=== PATIENT | male | born 1945 | race Caucasian/White ===

== ENCOUNTER 2016-09-30 10:13 | Observation (INO) | payer MEDICARE, OTHER ==
[~2016-09-30] VITALS: Ht 177.8 cm; Wt 87.8 kg
[2016-09-30] VITALS (8 sets, daily range): BP systolic 119–167; BP diastolic 67–95; PULSE 64–74; RESP 12–16; O2SAT 96–100
--- NOTE | 2016-09-30 10:47 | DRSVH ---
PROCEDURE: CT BRAIN (TPA) ([id number]) INDICATIONS: Stroke TECHNIQUE: Noncontrast 4.5 mm thick angled axial sections acquired from the foramen magnum to the vertex, with c oronal reformats. COMPARISON: None. FINDINGS: Image quality: Excellent. CSF spaces: Basal cisterns are patent. No extra-axial fluid collections. The ventricles are symmet lyndsay in size and shape. Brain: No intracranial bleeds or masses. There is cerebral volume loss for age, with resultant vent ricular and sulcal prominence. There are periventricular and deep white matter chronic small vessel ischemic changes. There is intracranial internal carotid artery atherosclerosis. Skull and face: Calvarium and visualized facial bones appear intact, without suspicious lesions. Sinuses: Visualized sinuses and mastoids are clear. IMPRESSION: 1. No acute intracranial process. 2. Moderate atrophy and chronic microvascular ischemic changes. The findings were discussed with Dr. Klever Cao on 09/30/16 at 10:41 AM. This study fulfills neurological imaging criteria for inclusion or exclusion of acute stroke therapie s based on available published neurological guidelines. Dictated by: Susan Nance M.D. on 09/30/2016 at 10:42 Approved by: Susan Nance M.D. on 09/30/2016 at 10:45
--- NOTE | 2016-09-30 10:50 | ED.REPORT ---
HPI-Stroke / CVA Sep 30, 2016 ED Provider: Dr. Heath Pt is a 70 y/o male anticoagulated on Warfarin w/ a hx of hx of septic embolic CVA, prev endocarditis, HTN, HLD, CAD and septic embolic SC, aortic aneurysm, presenting to the ED with family c/o now resolved RUE weakness onset 08:30 today. He describes his RUE weakness as a heaviness which lasted until he arrived to the ED and is now resolved by time of interview. He c/o associated lightheadedness, bilateral lower extremity weakness. All of his symptoms are resolved at time of interview. The family members were with him during the event and noticed that his arm use wasn't normal. He has had a stroke previously with symptoms of aphasia which was thought to be caused by endocarditis. Pt denies speech changes, vision changes, headache, CP, SOB, nausea, vomiting, diarrhea, bloody stools, dizziness. The patient is scheduled for defibrillator placement in the recent future. Wallpaper Printer Helper: Myke Echocardiogram 02/15/16 interpreted as below: Interpretation Summary Left ventricular systolic function is moderate to severely reduced with the ejection fraction estimated to be 30-35% with moderate global hypokinesis and more severe hypokinesis in the inferior and inferioposterior segments but this is unchanged compared to the previous study. The left ventricle is normal in size with mild-moderate concentric left ventricular hypertrophy that is also unchanged compared to the previous study. Assessment of diastolic parameters suggests a pseudonormalization pattern, consistent with elevated filling pressures and the E/E' ratio is moderately increased, also suggesting possible increased filling pressures but there has been no significant change since the previous study. The right ventricle is mildly dilated and right ventricular systolic function is moderately reduced but appears unchanged compared to the previous study. There is moderate pulmonary hypertension with the right ventricular systolic pressure estimated at 54 mmHg assuming a right atrial pressure of 8 mm Hg, and is likelyminimally improved compared to the previous study. There is severe biatrial enlargement but both have mildly decreased in size since the prior echo exam. There is moderate mitral regurgitation that is slightly more prominent compared to the previous study. There is moderate tricuspid regurgitation that is unchanged compared to the previous study. There is a mechanical prosthetic aortic valve that appears to be well-seated with gradients that are within the normal range for this type of valve. There is no obvious aortic valvular vegetation. There has been no significant change since the previous study . The ascending aorta is moderately enlarged but measures smaller compared to the previous study. The aortic arch is mildly enlarged and is unchanged compared to the previous study. Nursing Notes Stated Complaint: HEART PROBLEMS Chief Complaint: Neuro Symptoms/ Deficits Nursing Notes Reviewed: Yes Allergies: Coded Allergies: No Known Drug Allergies (Verified Allergy, Unknown, 09/30/16) Scheduled Aspirin (Aspirin) 81 Mg Tablet 81 MG PO DAILY (Reported) Atorvastatin Calcium (Atorvastatin Calcium) 20 Mg Tablet 20 MG PO HS (Reported) Carvedilol (Carvedilol) 6.25 Mg Tablet 6.25 MG PO BID (Reported) Felodipine ER (Felodipine ER) 10 Mg Tab.er.24h 10 MG PO DAILY (Reported) Furosemide (Furosemide) 20 Mg Tab 20 MG PO DAILY (Reported) Losartan Potassium (Losartan Potassium) 50 Mg Tablet 75 MG PO BID (Reported) Spironolactone (Spironolactone) 25 Mg Tablet 12.5 MG PO DAILY (Reported) Warfarin Sodium (Jantoven) 5 Mg Tablet 2.5 MG PO T,W,TH,S,S (Reported) Warfarin Sodium (Jantoven) 5 Mg Tablet 5 MG PO M, F (Reported) General Time Seen by Provider: 10:55 Chief Complaint Weakness Arm right Hx Obtained From: Patient Arrived By: Walk-in Time last known well 08:30 Sudden in Onset?: Yes Symptom Duration: 1 - 4 hours Progression Since Onset: Resolved Severity: Current: No pain currently Severity: Maximum: No pain Similar Sx Previous: No Risk Factors )( TPA Administration/Criteria Stroke Thrombolytic Therapy : TPA Considered: Yes TPA Administered Intravenously: No, not indicated NIH Stroke Scale Level of Consciousness: Alert and responsive (0) Ask Month & Age: Both questions right (0) Open/Close Eyes/Hand Donkey Engine Firer/Fireman: Performs both tasks (0) Horizontal EO Movements: None (0) Visual Burch: No visual loss (0) Facial Palsy: Normal symmetry (0) Right Arm Motor Drift (10s): No drift 10 sec (0) Left Arm Motor Drift (10s): No drift 10 sec (0) Right Leg Motor Drift (5s): No drift 5 sec (0) Left Leg Motor Drift (5s): No drift 5 sec (0) Limb Ataxia FNF/Heel-Emery: No ataxia (0) Sensation (Arms/Legs/Face): No sensory loss (0) Language Aphasia: No aphasia, normal (0) Dysarthria: No dysarthria, normal (0) Extinction/Inattention: No exctinct/inattent (0) NIHSS Score: 0 Time NIHSS Performed: 11:09 Date NIHSS Performed: Sep 30, 2016 Past Medical History Past Medical History 1. Hx endocarditis 2. 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 Hypertension. 4. Dyslipidemia. 5. Bicuspid aortic valve status post aortic valve replacement in 1955, redo in 1977 with a Riana/Shiley aortic valve. 6. Embolic myocardial infarction with known significant coronary artery disease, right bundle branch block, bifascicular. 7. Mild sleep apnea. 8. Ascending aortic aneurysm. CT scan May 11 showed 4.7 cm. Past Surgical History Aortic valve replacement Smoking History Unknown if Ever Smoker Social History Other Social History: Good social support Ambulatory Status Independent Review of Systems Constitutional: Denies: Chills, Fever Respiratory: Denies: Non-productive cough, Shortness of breath Cardiovascular: Denies: Chest pain, Dyspnea on exertion GI: Denies: Abdominal pain, Bloody/tarry stool, Diarrhea, Nausea, Vomiting Musculoskeletal: Denies: Back pain, Extremity pain Neurologic: Reports: Focal weakness, Lightheaded, Weakness, Denies: Abnormal movement, Bladder dysfunction, Bowel dysfunction, Change LOC , Confusion, Dizziness, Headache, Numbness, Problem walking, Seizure, Shaking, Slurred speech, Spinning sensation, Syncope, Unable to speak, Vision change Complete sys rev & neg: except as marked. Male: Denies Dysuria Physical Exam Nursing note and vitals reviewed. Constitutional: Well-developed, well-nourished. Not diaphoretic. Head: Normocephalic and atraumatic. Mouth/Throat: Oropharynx is clear and moist. No oropharyngeal exudate. Eyes: EOM are normal. Pupils are equal, round, and reactive to light. Neck: Supple, no tracheal deviation. Cardiovascular: Normal rate, regular rhythm. Equal and intact distal pulses throughout. Pulmonary/Chest: Effort normal and breath sounds normal. No respiratory distress. Abdominal: Soft. No distension. There is no tenderness, rebound, or guarding. Bowel sounds present. Musculoskeletal: Range of motion grossly intact, moving all extremities. No edema or tenderness appreciated. Neurological: AOx3. Grossly nonfocal exam. Strength and sensation intact and equal to bilateral upper and lower extremities. Normal finger to nose testing. No pronator drift. Negative Romberg, unremarkable gait. NIH stroke scale = 0. Skin: Warm and dry, no rashes or pallor appreciated. Psychiatric: Appropriate mood and affect. Behavior appears normal. Initial Vital Signs Vital Signs (First) Date Time Temp Pulse Resp B/P Pulse Ox O2 Delivery O2 Flow Rate FiO2 09/30/16 10:16 36.3 74 12 167/90 100 Room Air Initial VS: Reviewed, Vital signs abnormal Interpretation & Diagnostics Lab Results Interpretation Result Diagram: 10/01/16 0500 10/01/16 0500 Test 09/30/16 10:40 Neutrophils (%) (Auto) 63.5% (40-74) Lymphocytes (%) (Auto) 25.8% (14-46) Monocytes (%) (Auto) 6.9% (4-12) Eosinophils (%) (Auto) 3.0% (0-5) Basophils (%) (Auto) 0.5% (0-3) Activated Partial Thromboplast Time 36.2sec (22.8-33.0) Total Bilirubin 0.7mg/dL (0.0-1.2) Aspartate Amino Transf (AST/SGOT) 24U/L (0-50) Alanine Aminotransferase (ALT/SGPT) 22U/L (0-44) Alkaline Phosphatase 132U/L (25-160) Troponin T < 0.010ug/L (0.0-0.011) Total Protein 7.8g/dL (6.4-8.4) Albumin 4.3g/dL (3.4-5.0) Hold Carvajal Top Tube Received (Received) ECG Interpretation ECG Interpretation: Sinus rhythm rate 71 Prolonged MS interval RBBB LVH Prolonged QT interval, QTc 506 Time: 12:05 Interpreted by: ED physician Normal ECG Interpretation: No acute ischemic changes CT Head Interpretation IMPRESSION: 1. No acute intracranial process. 2. Moderate atrophy and chronic microvascular ischemic changes. The findings were discussed with Dr. Klever Cao on 09/30/16 at 10:41 AM. This study fulfills neurological imaging criteria for inclusion or exclusion of acute stroke therapies based on available published neurological guidelines. Dictated by: Susan Nance M.D. on 09/30/2016 at 10:42 Approved by: Susan Nance M.D. on 09/30/2016 at 10:45 Study: Head CT no contrast Interpretation / Wet Read by: Interpret - Radiologist Re-Eval/Medical Decision Med Decision/Clinical Course 70-year-old male on Coumadin with a complex past medical history including previous stroke, endocarditis, hypertension, hyperlipidemia, coronary artery disease, and aortic aneurysm presenting to the ED for evaluation of sudden onset of right upper extremity weakness approximately 3 hours prior to arrival. Symptoms lasted for approximately 20-30 minutes and resolved on their own without intervention. Upon arrival to the ED, patient states that all his symptoms have resolved. TPA was considered though not given given that his symptoms have been resolved and he is on Coumadin. No other complaints at this time. Initial workup notable for an INR of 2.82, CBC and CMP grossly within normal limits, troponin negative. H&H stable from previous. Head CT negative for acute bleed. Given concern for transient ischemic attack and risk of stroke going forward, decision was made to admit the patient for further management and evaluation. Patient agreeable to the plan as stated, no further questions. Re-Evaluation/Progress : Time of Eval: 11:09 Re-Evaluation/Progress Note: Pt rechecked. Informed pt of need for admission for TIA workup. Pt understands and agrees with plan for admission. All questions addressed. Consultation : Referral / Consult Name: Jake Gamez Consulted With: Hospitalist Call Returned at: 13:00 Director Of Institutional Giving: Will see patient, Agrees with eval, Agrees with plan, Accepts admit Counseled Regarding: Diagnosis, Lab results, Need for admission Patient Discharge & Departure Impression: Primary Impression: TIA (transient ischemic attack) Transient cerebral ischemia type: unspecified Qualified Code: G45.9 - Transient cerebral ischemic attack, unspecified Additional Impression: Non-sustained ventricular tachycardia Disposition: ADMITTED TO HOSPITAL Discharge Condition All VS Reviewed: Yes Condition: Stable Referrals: Aly Cohen MD (PCP) Crit Care Except Billable Proc Time Spent: 30-74 minutes Services Performed: Patient management by me, Time spent at bedside, Reviewing test results, Reviewing imaging, Discussing patient care, Documentation in record, Time with fam/surrogate Critical Care Notes: Please see MDM. Scribe Attestation Portions of this note were transcribed by Maicol Espinal. I, Dr. Heath personally performed the history, physical exam and medical decision-making; I reviewed and confirmed the accuracy of the information in the transcribed note. Signed by Jordana Bailey, 09/30/16 - 1099 copies to: Aly Cohen MD, William B MD Sep 30, 2016 10:50 MAICOL ESPINAL Sep 30, 2016 11:02 Dictated by: Susan Nance M.D. on 09/30/2016 at 10:42 Approved by: Susan Nance M.D. on 09/30/2016 at 10:45 Study: Head CT no contrast Interpretation / Wet Read by: Interpret - Radiologist Re-Eval/Medical Decision Med Decision/Clinical Course INR of 2.82 CBC and CMP grossly within normal limits, troponin negative Normally has UA consistent with UTI H&H stable from previous CT head: negative Re-Evaluation/Progress : Time of Eval: 11:09 Re-Evaluation/Progress Note: Pt rechecked. Informed pt of need for admission for TIA workup. Pt understands and agrees with plan for admission. All questions addressed. Consultation : Referral / Consult Name: Jake Gamez Consulted With: Hospitalist Call Returned at: 13:00 Director Of Institutional Giving: Will see patient, Agrees with eval, Agrees with plan, Accepts admit Counseled Regarding: Diagnosis, Lab results, Need for admission Patient Discharge & Departure Impression: Primary Impression: TIA (transient ischemic attack) Transient cerebral ischemia type: unspecified Qualified Code: G45.9 - Transient cerebral ischemic attack, unspecified Additional Impression: Non-sustained ventricular tachycardia Disposition: ADMITTED TO HOSPITAL Discharge Condition All VS Reviewed: Yes Condition: Stable Referrals: Aly Cohen MD (PCP) Crit Care Except Billable Proc Time Spent: 30-74 minutes Services Performed: Patient management by me, Time spent at bedside, Reviewing test results, Reviewing imaging, Discussing patient care, Documentation in record, Time with fam/surrogate Scribe Attestation Portions of this note were transcribed by Maicol Espinal. I, Dr. Heath personally performed the history, physical exam and medical decision-making; I reviewed and confirmed the accuracy of the information in the transcribed note. Signed by Jordana Bailey, 09/30/16 - 1099 copies to: Aly Cohen MD, William B MD Sep 30, 2016 10:50 MAICOL ESPINAL Sep 30, 2016 11:02
[2016-09-30 11:05] LABS: BASOPHILS % (AUTO) 0.5 % (0-3); MONOCYTES % (AUTO) 6.9 % (4-12); Mean Corpuscular Hemoglobin 31.8 pg (27.0-35.0); Mean Corpuscular Volume 93.9 fL (81-100); NEUTROPHILS % (AUTO) 63.5 % (40-74); Platelet Count 199 bil/L (150-400)
[2016-09-30 11:20] LABS: INR 2.82 ratio
--- NOTE | 2016-09-30 11:38 | NUR ---
Evaluation completed. Please go to "Notes" then click on "Assessments and Notes" (bottom left corner of screen). Then select appropriate discipline tab on top of screen.
[2016-09-30 11:53] LABS: TROPONIN T < 0.010 ug/L (0.0-0.011)
[2016-09-30] MEDS ORDERED: Polyethylene Glycol (PEG) 17 Gm Powder PO PRN (13:05)
[2016-09-30] MEDS ORDERED: Alum-Mag Hydrox-Simeth 30 mL Suspension PO PRN (13:05)
[2016-09-30] MEDS ORDERED: Labetalol 5 mg/mL 4 mL Inj IVPUSH PRN (13:05)
[2016-09-30] MEDS ORDERED: Ondansetron 2 mg/mL 2 mL Inj IVPUSH PRN (13:05)
--- NOTE | 2016-09-30 13:35 | PCM.HPMED ---
Subjective Date of Service Sep 30, 2016 Primary Provider: Admitting Physician: Primary Care Physician: Aly Cohen MD Attending Physician: Chief Complaint: Right arm weakness and ataxia. 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 Patient is on chronic coagulation for his mechanical valve. 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 Initially presented with symptoms of confusion and altered mentation. It was discovered on echocardiogram that the patient a vegetation had a vegetation on his mitral valve. He was transferred to [facility] for further workup. Patient actually did not undergo surgery and was on extended antibiotics for at least 6 weeks. Etiology of his endocarditis was discovered. The patient's family does not recall any mention of MRSA. He presents today due to right arm weakness and numbness and difficulty moving as well as ataxia. Patient states that he felt his legs were weak when it was more of an inability to find his gait. The symptoms have resolved since his evaluation at the emergency department. He denies any blurred vision, slurred speech, facial droop, chest pain, palpitations. He did note some headache which was right-sided that has resolved along with his arm weakness. Patient's retail aide is Dr. Robles. Of note, the patient does have a severely reduced ejection fraction of 30% and is currently under evaluation for an AICD placement due to multiple runs of nonsustained ventricular tachycardia. He is scheduled for AICD placement on 10/30/2016. In the emergency department his vital signs were notable for hypertension with a blood pressure 167/90. A CT brain was performed which ruled out intracranial bleed. Review of Systems: A comprehensive review systems is performed and is negative except as noted above in history present illness. Allergies Coded Allergies: No Known Drug Allergies (Verified Allergy, Unknown, 09/30/16) Home Medications Randy Fournier [id number] 1945 08/23/2016 04:30 PM 03/22 Start Date Medication Directions Stop Date 02/25/2015 Aspirin 81 Mg Tablet 1 tablet by mouth daily 07/13/2016 atorvastatin 20 mg tablet take 1 tablet by oral route every day 07/13/2016 carvedilol 6.25 mg tablet take 1 tablet by oral route 2 times every day with food 07/13/2016 felodipine ER 10 mg tablet,extended release 24 hr take 1 tablet by oral route every day 08/01/2016 furosemide 20 mg tablet take 1 tablet by oral route every day Jantoven 5 mg tablet 5 mg m,w,f 2.5 mg all other days 07/13/2016 losartan 50 mg tablet take 1.5 tablet by oral route 2 times every day Exam Vital Signs & I/O Vital Sign- Last 8 Hours Date Time Temp Pulse Resp B/P Pulse Ox O2 Delivery O2 Flow Rate FiO2 09/30/16 18:09 36.9 71 16 119/67 96 Room Air 09/30/16 14:35 71 09/30/16 14:31 36.5 68 16 151/84 99 Room Air 09/30/16 13:50 64 16 136/90 99 Room Air 09/30/16 11:16 70 15 122/95 96 Room Air Lab & Micro Results Laboratory Tests Test 09/30/16 10:40 09/30/16 14:56 White Blood Count 6.4th/mm3 (3.8-10.1) Red Blood Count 4.62mil/mm3 (4.40-5.80) Hemoglobin 14.7g/dL (13.8-17.2) Hematocrit 43.4% (41.0-50.0) Mean Corpuscular Volume 93.9fL (81-100) Mean Corpuscular Hemoglobin 31.8pg (27.0-35.0) Mean Corpuscular Hemoglobin Concent 33.9% (32.0-37.0) Red Cell Distribution Width 13.1% (12.3-15.4) Platelet Count 199bil/L (150-400) Neutrophils (%) (Auto) 63.5% (40-74) Lymphocytes (%) (Auto) 25.8% (14-46) Monocytes (%) (Auto) 6.9% (4-12) Eosinophils (%) (Auto) 3.0% (0-5) Basophils (%) (Auto) 0.5% (0-3) Prothrombin Time 30.8sec (8.1-12.5) Prothromb Time International Ratio 2.82ratio Activated Partial Thromboplast Time 36.2sec (22.8-33.0) Sodium Level 140mEq/L (134-144) Potassium Level 4.4mEq/L (3.5-5.2) Chloride Level 105mEq/L (97-108) Carbon Dioxide Level 20mmol/L (18-29) Blood Urea Nitrogen 22mg/dL (8-27) Creatinine 1.05mg/dL (0.76-1.27) Estimat Glomerular Filtration Rate 74mL/min (>59) Glucose Level 105mg/dL (60-99) Calcium Level 9.6mg/dL (8.5-10.1) Total Bilirubin 0.7mg/dL (0.0-1.2) Aspartate Amino Transf (AST/SGOT) 24U/L (0-50) Alanine Aminotransferase (ALT/SGPT) 22U/L (0-44) Alkaline Phosphatase 132U/L (25-160) Troponin T < 0.010ug/L (0.0-0.011) Total Protein 7.8g/dL (6.4-8.4) Albumin 4.3g/dL (3.4-5.0) Hold Carvajal Top Tube Received (Received) Result Diagram: 09/30/16 1040 09/30/16 1040 Review of Systems: Constitutional: Negative, except as otherwise mentioned in the history above. Ophthalmologic: Negative, except as otherwise mentioned in the history above. Cardiovascular: Negative, except as otherwise mentioned in the history above. Respiratory: Negative, except as otherwise mentioned in the history above. Gastrointestinal: Negative, except as otherwise mentioned in the history above. Genitourinary: Negative, except as otherwise mentioned in the history above. Musculoskeletal: Negative, except as otherwise mentioned in the history above. Neurological: Negative, except as otherwise mentioned in the history above. Psychiatric: Negative, except as otherwise mentioned in the history above. Hematologic/Lymphatic: Negative, except as otherwise mentioned in the history above. Allergic/Immunologic: Negative, except as otherwise mentioned in the history above. PMH Bicuspid aortic valve status post replacement Hyperlipidemia CVA secondary to septic emboli Bacterial endocarditis First-degree AV block Heart failure with reduced EF Inferior wall myocardial infarction Right bundle branch block with left anterior fascicular block Pulmonary hypertension Surgical History Aortic valve replacement Cardiac cath Renal stone surgery Family History Patient has 2 children. His father had cardiac bypass surgery. His son has an artificial valve. Social History Hx Alcohol Use: Yes (one drink a day) Smoking Status: Unknown if Ever Smoker Exam Vital Signs Vital Sign - Last Date Time Temp Pulse Resp B/P Pulse Ox O2 Delivery O2 Flow Rate FiO2 09/30/16 11:16 70 15 122/95 96 Room Air 09/30/16 10:16 36.3 Exam General: No acute distress, well-developed, well-nourished, appropriately interactive HEENT: Normocephalic, atraumatic. External ears without defect. Pupils equal, round, and reactive to light and accommodation. Anicteric sclerae, moist conjunctivae, and no lid lag. Oropharynx free of erythema and cobble stoning with moist mucosa. Neck: Supple with full range of motion. No jugular venous distension. No bruits. No lymphadenopathy or thyromegaly. Cardiovascular: Regular rate and rhythm with mechanical valve appreciated. Pulmonary: Clear to auscultation bilaterally with no crackles, wheezes, or rhonchi. Normal respiratory effort with no use of accessory muscles. Abdomen: Bowel tones present. Soft, nontender, nondistended. No hepatosplenomegaly or masses appreciated. Extremities: No clubbing, cyanosis, edema, or lymphadenopathy appreciated. Skin: Normal temperature, turgor, and texture; no rash, ulcers, or subcutaneous nodules appreciated. Neurological: Cranial 2 through 12 nerves intact bilaterally. Normal muscle strength, tone, and bulk. Reflexes, coordination, and sensory function within normal limits. Finger-nose smooth and coordinated. Gait normal and stable. Psychiatric: Normal mood and affect. Alert and oriented to person, place, and time. Lab and Diagnostics Result Diagram: 09/30/16 1040 09/30/16 1040 X-Rays, CTs and MRIs CT BRAIN (TPA) IMPRESSION: 1. No acute intracranial process. 2. Moderate atrophy and chronic microvascular ischemic changes. Dictated by: Susan Nance M.D. on 09/30/2016 at 10:42 12-lead ECG Right bundle branch block, left anterior fascicular block, left axis deviation. 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 Patient is on chronic coagulation for his mechanical valve. Transient ischemic attack, present on admission, active - Patient has multiple risk factors for CVA including past history of CVA, hyperlipidemia, hypertension, past history of endocarditis with septic emboli from an unknown etiology -Patient will be admitted for evaluation of CVA -MR brain, CT angiogram of head and neck, echo -Speech therapy/occupational therapy/physical therapy to evaluate -Fall precautions -Recent is on warfarin and 81 mg of aspirin. As patient has failed aspirin he would need to be initiated on Plavix for secondary stroke prevention provided for stroke is found. -A1c, lipid panel -Permissive Hypertension for 24 hours Heart failure with reduced EF, with arrhythmia, present on admission, active -Due to the patient's runs of ventricular tachycardia will continue his carvedilol. Chronic issues, present on admission, stable: Bicuspid aortic valve status post mechanical aortic valve replacement, present on admission, active - Patient's INR is therapeutic. -Continue warfarin dosing per pharmacy Hyperlipidemia -Continue statin Hypertension - Hold antihypertensives due to permissive hypertension CODE STATUS: Full code Patient is admitted under observation status with expected length of stay less than 2 midnights due to severity of presenting symptoms, risk of adverse event, and complexity of treatment plan. VTE Prophylaxis: Theraputic Anticoag with Warfarin Resuscitation Status: CPR: Attempt Resuscitation Attending Statement The patient was seen and examined together with Dr. Fu on 09/30/16 and I agree with the history, exam and plan as outlined in the note above. Dinora Fu DO Sep 30, 2016 13:35 Jake Gamez Sep 30, 2016 19:02
--- NOTE | 2016-09-30 14:01 | DRSVH ---
PROCEDURE: CT ANGIO HEAD AND NECK (P) INDICATIONS: tia TECHNIQUE: Pre-contrast 4.5 mm thick sections acquired from the foramen magnum to the vertex. After the adminis tration of intravenous contrast, 1 mm thick sections acquired from the aortic arch through the [place] of [place]. Post-contrast 4.5 mm thick sections then re-acquired from the foramen magnum to the vert ex. 3-dimensional hcqexcm-jmwahaeck-kzelitazoe (MIP) and/or volume rendering reformats were acquired of the central intracranial vasculature and neck separately. For radiation dose reduction, the foll owing was used: automated exposure control, adjustment of mA and/or kV according to patient size. COMPARISON: [facility], CT, CHEST W/O CONTRAST, 01/01/2013, 16:49. [facility], CT, BRAIN (TPA), 09/30/2016, 10:33. FINDINGS: Image quality: Excellent. BRAIN: The ventricular system and cortical sulci demonstrate atrophy, consistent for the patient's stated ag e. There are areas of hypodensity within the periventricular and subcortical white matter. There is no acute intra-or extra axial fluid collection. No acute hemorrhage, mass lesion or midline shift. Br ainstem is unremarkable. Show Globes are symmetrical. Sinuses are aerated. Osseous structures are int act. HEAD CT ANGIOGRAPHY: Anterior circulation: Intracranial internal carotid arteries are normal in size and flow. The flow within the paired anterior cerebral arteries is normal and symmetric. The flow within the middle cer ebral arteries is normal and symmetric. The anterior communicating artery is seen. No aneurysms are seen. Posterior circulation: Visualized portions of the vertebral arteries demonstrate normal caliber, and join to form a normal appearing basilar artery. Flow within the posterior cerebral arteries is norm al and symmetric. No aneurysms are seen. NECK CT ANGIOGRAPHY: The origins of the right common, right internal and bilateral external carotid arteries demonstrate n o areas of hemodynamically significant stenosis, vascular occlusion or aneurysmal dilation. There is calcification identified at the left carotid bulb and proximal internal carotid artery with approxima tely 20-30% calcification. Origins of the left and right vertebral arteries demonstrate no areas of h emodynamically significant stenosis, vascular occlusion or aneurysmal dilation. Aortic arch demonstra carmen conventional anatomy. Limited, visualized portions subclavian vasculature are unremarkable. The a scending thoracic aorta is enlarged measuring 47 mm in transverse dimension. IMPRESSION: 1. No acute intracranial process. 2. Moderate atrophy and chronic microvascular ischemic changes. 3. No areas of hemodynamically significant stenosis, vascular occlusion or aneurysmal dilation within the posterior circulation. 4. No areas of hemodynamically significant stenosis, vascular occlusion or aneurysmal dilation within the anterior circulation. 5. 20-30% stenosis of the origin of the left internal carotid artery. 6. Ascending thoracic aorta is enlarged measuring 47 mm in transverse dimension. It is noted that me asured approximately 45 mm on 01/01/13. Dictated by: Susan Nance M.D. on 09/30/2016 at 13:49 Approved by: Susan Nance M.D. on 09/30/2016 at 14:00
--- NOTE | 2016-09-30 14:04 | NUR ---
Admission' Pt arrives to [facility] from ED via stretcher. A/OX3. No complains of pain, increased weakness, numbness or tingling, blurred vision or dizziness. IV saline locked, no O2 in place. Pt able to transfer self from stretcher to bed unassisted, stable steady gait observed. Family accompanied pt, awaiting in the [place] for completion of admission process. Oriented to , call light, visiting hours. Spouse Siena will be transportation home at time of discharge.
--- NOTE | 2016-09-30 16:16 | DRSVH ---
PROCEDURE: MRI BRAIN WITHOUT CONTRAST ([id number]) INDICATIONS: TIA TECHNIQUE: Non-contrast axial T1 spin echo, axial T2 fast spin echo, sagittal and axial FLAIR, coronal T2 fast s pin echo, axial gradient echo, axial diffusion and ADC through the brain. COMPARISON: [facility], MR, BRAIN W&W/O CONTRAST, 01/01/2013, 21:16. [facility], CT, BRAIN (TPA), 09/30/2016, 10:33. FINDINGS: Image quality: Excellent. CSF spaces: Ventricles appear symmetric in size and shape. Basal cisterns are patent. No extra-axi al fluid collections. Brain: No intracranial bleeds or mass effects. There is cerebral volume loss for age. There are pe riventricular and deep white matter chronic small vessel ischemic changes. Brainstem appears normal. Diffusion-weighted images show no acute ischemic insults. No chronic ischemic insults. Normal int ravascular flow voids are present. Note is made of several punctate foci of susceptibility artifact within the white matter of the cerebral hemispheres, slightly greater on the right than the left. Se veral similar foci were present during prior MR scanning 01/01/13 but the number of these foci has mi ldly increased over time. Skull and face: Calvarial bone marrow is normal in signal. Orbits are normal. Sinuses: Sinuses and mastoids are clear except for chronic partial opacification of the left maxilla ry sinus as was previously the case during MR scanning 01/01/13. IMPRESSION: Lesion, no evidence of acute or subacute ischemic injury is found. There is a finding o f small punctate foci of susceptibility artifact slightly increased from the minimal degree present 1 by prior MRI. These foci can represent areas of punctate hemorrhage in the setting of trauma from the past, but also can be seen in the setting of age related amyloid angiopathy. No hemorrhage is found, no vascular malformation is seen. Mild chronic appearing partial opacification of the left maxillary sinus, previously present in 1999. Dictated by: Costa Cortez M.D. on 09/30/2016 at 16:08 Approved by: Costa Cortez M.D. on 09/30/2016 at 16:14
[2016-09-30] MEDS ORDERED: ASPI-973 PO (16:20)
[2016-09-30] MEDS ORDERED: FUR20 PO (16:25)
[2016-09-30] MEDS ORDERED: ATOR20TA65 PO (16:25)
[2016-09-30] MEDS ORDERED: LOSA50TA37 PO (16:25)
[2016-09-30] MEDS ORDERED: CARV6.252 PO (16:25)
[2016-09-30] MEDS ORDERED: SPIR25TA3 PO (16:25)
[2016-09-30] MEDS ORDERED: WARF5TAB9 PO ×2 (16:25)
[2016-09-30] MEDS ORDERED: FELO10TA3 PO (16:26)
[2016-09-30 19:27] LABS: APPEARANCE,URINE CLEAR (CLEAR,HAZY); COLOR,URINE YELLOW (YELLOW); OCCULT BLOOD,URINE NEGATIVE (NEGATIVE); UROBILINOGEN,URINE NORMAL (NORMAL)
[2016-10-01 00:16] VITALS: BP 115/67; PULSE 68; RESP 16; O2SAT 99
[2016-10-01 05:25] VITALS: BP 132/75; PULSE 67; RESP 16; O2SAT 96
[2016-10-01 05:27] LABS: Mean Corpuscular Hemoglobin 32.1 pg (27.0-35.0); Mean Corpuscular Volume 94.3 fL (81-100)
[2016-10-01 05:37] LABS: INR 2.46 ratio
[2016-10-01 05:52] LABS: Magnesium 2.2 mg/dL (1.6-2.6)
--- NOTE | 2016-10-01 06:45 | NUR ---
Neuro A/Ox4, pt states right sided weakness and numbness all resolved, no speech abnormality, no facial droop noted, tongue midline,full strength at all extremities, sensation intact.
[2016-10-01 09:25] VITALS: BP 118/78; PULSE 70; RESP 18; O2SAT 96
[2016-10-01 10:11] VITALS: PULSE 74
--- NOTE | 2016-10-01 10:35 | NUR ---
Evaluation completed. Please go to "Notes" then click on "Assessments and Notes" (bottom left corner of screen). Then select appropriate discipline tab on top of screen.
--- NOTE | 2016-10-01 11:40 | NUR ---
Echo Pt had recent Echo completed 08/15/16, results have been faxed and placed in chart. Per pascual Bullard to complete limited Echo. Spoke with Ventura Boles for limited exam to be completed. Will continue to monitor,
--- NOTE | 2016-10-01 12:01 | NUR ---
Case Management: YVAN given and explained to pt. Chani RAWLS RN
--- NOTE | 2016-10-01 14:52 | NUR ---
Social Work Note - Initial Assessment - Discharge Randy Fournier is a 70 yr old admitted for TIA. EMR reviewed: Pt has Medicare and supplement. His PCP is Dr Cohen. Readmit score is not available. DPOA paperwork given to family. See attached CM initial assessment. SENIOR UI DEVELOPER met with pt - Pt's also in the room. SENIOR UI DEVELOPER introduced D/C planning and explained SW role. Pt lives at home with his . 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 Independent at baseline, no DME, No hx of HH or SNF. Pt states he is planning to d/c home with no anticipated needs. SENIOR UI DEVELOPER provided DC planning checklist. Plan: Home with family in POV. No needs identified. FER Vizcarra Addendum: 10/01/16 at 1507 by KRISTIN DANIEL SS Amended: Links added.
[2016-10-01 15:16] VITALS: BP 147/82; PULSE 69; RESP 18; O2SAT 97
--- NOTE | 2016-10-01 15:36 | PCM.PHAPRO ---
Progress Right arm weakness and ataxia. Date Oct 01-Sep INR 2.82 2.46 INR change -0.36 Warf Dose 2.5 5 Ruel Najera Pharm.D Oct 01, 2016 15:36
--- NOTE | 2016-10-01 15:56 | DRSVH ---
Version 2 [facility] [address] [place] [address] Echocardiogram Report Name: JOBY CASAS Date: 10/01/2016 Height: 70 in Hospital Exam Location: [facility] Weight: 194 lb Gender: Male BSA: 2.1 m2 : 1945 Age: 70 yrs BP: 118/78 mm Hg Reason For Study: Endocarditis Ordering Physician: HOSPITALIST [facility] Performed By: Killian Davis Referring Physician: Jorden Jo Interpretation Summary Left ventricular systolic function is moderately reduced. The ejection fraction is estimated to be 35-40%. Compared to the prior exam, left ventricular function is slightly better. There is akinesis of the inferior wall with significant hypokinesis along the inferoseptum and inferolateral wall. This was similar to prior echo study on 08/15/2016. There appears to be evidence for apical thrombus but with Definity contrast there is no evidence of thrombus, hence this is most likely an artifact. The right ventricle is at the upper limits of normal in size. Right ventricular systolic function is mildly reduced. Right ventricular systolic function has not changed since previous exam. Right ventricular systolic pressure is estimated to be 44 mmHg plus the clinically estimated CVP which cannot be estimated on this exam. Compared to the prior echo exam, this is either the same or improved since prior study. There is mild mitral regurgitation. MR has improved. There is a mechanical aortic valve. The prosthetic aortic valve is well-seated. There is mild to moderate tricuspid regurgitation. There is no gross evidence for endocarditis; however, the sensitivity for the detect of such is decreased due to suboptomal imaging of valves. Consider STACIE if highly suspicious for endocarditis. Procedure: A two-dimensional transthoracic echocardiogram with color flow and Doppler was performed in limited views only. The study quality was technically adequate. A contrast injection of Definity was performed to improve assessment for apical thrombus. No thrombus visualized. The patient was in normal sinus rhythm during the exam. Left Ventricle: There appears to be evidence for apical thrombus but with Definity contrast there is no evidence of thrombus, hence this is most likely an artifact. Left ventricular systolic function is moderately reduced. The ejection fraction is estimated to be 35-40%. Compared to the prior exam, left ventricular function is slightly improved. There is akinesis of the inferior wall with significant hypokinesis along the inferoseptum and inferolateral wall. This was present of prior echo study on 08/15/2016. Right Ventricle: The right ventricle is at the upper limits of normal in size. Right ventricular systolic function is mildly reduced. Right ventricular systolic function has not changed since previous exam. Mitral Valve: The mitral valve leaflets appear thickened, but open well. There is mild to moderate mitral annular calcification. There is mild mitral regurgitation. Compared to the prior echo study, there has been a decrease in the severity of mitral regurgitation. Aortic Valve: There is a mechanical aortic valve. The prosthetic aortic valve is well-seated. Tricuspid Valve: The tricuspid valve is normal in structure and function. There is mild to moderate tricuspid regurgitation. Right ventricular systolic pressure is estimated to be 44 mmHg plus the clinically estimated CVP which cannot be estimated on this exam. Pulmonic Valve: The pulmonic valve is not well seen, but is grossly normal. There is trace pulmonic regurgitation. Pericardium/ Pleura There is no pericardial effusion. There is no pleural effusion. Doppler Measurements & Calculations TR max penny: 331.4 cm/sec TR max P.9 mmHg Reading Physician:IDA
--- NOTE | 2016-10-01 16:28 | PCM.DIMED ---
Discharge Instructions Date of Service Oct 01, 2016 Dates of Hospitalization Sep 30, 2016 at 13:27 Discharge Diagnosis Discharge Diagnosis # Acute transient ischemic attack (TIA), present on admission # Chronic systolic heart failure, present on admission # History of Bicuspid aortic valve status post mechanical aortic valve replacement, present on admission # Chronic anticoagulation with warfarin and therapeutic INR (2.46) by day of discharge # Hyperlipidemia # Chronic Hypertension. Stable. Medication Instructions Additional med instructions Resume home medications as before Diet Discharge Diet: Low fat, Low Sodium, Heart Healthy Activity Discharge Activity: No restrictions Call your provider Call your provider for: Fever or Chills, Shortness of breath, Bleeding, Chest pain, Weakness (unilateral) Patient Instructions Patient Instructions Seek immediate medical attention if any new or worsening signs or symptoms occur. Follow-up plan 1. Followup with primary care provider in 3-7 days Follow-up Provider: Aly Cohen MD, Masoud Oct 01, 2016 16:28
--- NOTE | 2016-10-01 16:40 | PCM.DC.MED ---
Discharge Summary Date of Service Oct 01, 2016 Dates of Hospitalization Date of Hospital Admission Sep 30, 2016 at 13:27 Date of Discharge: Oct 01, 2016 Providers: Admitting Physician: Jake Gamez Primary Care Physician: Aly Cohen MD Attending Physician: Jake Gamez Diagnosis at Time of Discharge Diagnosis at Time of Discharge # Acute transient ischemic attack (TIA), present on admission # Chronic systolic heart failure, present on admission # History of Bicuspid aortic valve status post mechanical aortic valve replacement, present on admission # Chronic anticoagulation with warfarin and therapeutic INR (2.46) by day of discharge # Hyperlipidemia # Chronic Hypertension. Stable. Procedures XRay, CTs & MRIs CT BRAIN (TPA) IMPRESSION: 1. No acute intracranial process. 2. Moderate atrophy and chronic microvascular ischemic changes. Dictated by: Susan Nance M.D. on 09/30/2016 at 10:42 Date of Service: 09/30/16 1303 PROCEDURE: CT ANGIO HEAD AND NECK (P) IMPRESSION: 1. No acute intracranial process. 2. Moderate atrophy and chronic microvascular ischemic changes. 3. No areas of hemodynamically significant stenosis, vascular occlusion or aneurysmal dilation within the posterior circulation. 4. No areas of hemodynamically significant stenosis, vascular occlusion or aneurysmal dilation within the anterior circulation. 5. 20-30% stenosis of the origin of the left internal carotid artery. 6. Ascending thoracic aorta is enlarged measuring 47 mm in transverse dimension. It is noted that measured approximately 45 mm on 01/01/13. Dictated by: Susan Nance M.D. on 09/30/2016 at 13:49 Approved by: Susan Nance M.D. on 09/30/2016 at 14:00 Date of Service: 09/30/16 1347 PROCEDURE: MRI BRAIN WITHOUT CONTRAST ([id number]) IMPRESSION: Lesion, no evidence of acute or subacute ischemic injury is found. There is a finding of small punctate foci of susceptibility artifact slightly increased from the minimal degree present 01/01/13 by prior MRI. These foci can represent areas of punctate hemorrhage in the setting of trauma from the past, but also can be seen in the setting of age related amyloid angiopathy. No hemorrhage is found, no vascular malformation is seen. Mild chronic appearing partial opacification of the left maxillary sinus, previously present in 1999. Dictated by: Costa Cortez M.D. on 09/30/2016 at 16:08 Approved by: Costa Cortez M.D. on 09/30/2016 at 16:14 Cardiac Echo Impression Date of Service: 10/01/16 1303 Echocardiogram Report Interpretation Summary Left ventricular systolic function is moderately reduced. The ejection fraction is estimated to be 35-40%. Compared to the prior exam, left ventricular function is significantly decreased. There is akinesis of the inferior wall with significant hypokinesis along the inferoseptum and inferolateral wall. This was present of prior echo study on 12/07/2011 but appears to be more pronounced. There appears to be evidence for apical thrombus but with Definity contrast there is no evidence of thrombus, hence this is most likely an artifact. The right ventricle is at the upper limits of normal in size. Right ventricular systolic function is mildly reduced. Right ventricular systolic function has decreased since previous exam. Right ventricular systolic pressure is estimated to be 44 mmHg plus the clinically estimated CVP which cannot be estimated on this exam. Compared to the prior echo exam, there has been an increase in the severity of pulmonary hypertension. There is mild mitral regurgitation. There is a mechanical aortic valve. The prosthetic aortic valve is well-seated. There is mild to moderate tricuspid regurgitation. There is no gross evidence for endocarditis; however, the sensitivity for the detect of such is decreased due to suboptomal imaging of valves. Consider STACIE if highly suspicious for endocarditis. Reading Physician:PM Brief History As noted in H&P by Dr. 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 Patient is on chronic coagulation for his mechanical valve. 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 Initially presented with symptoms of confusion and altered mentation. It was discovered on echocardiogram that the patient a vegetation had a vegetation on his mitral valve. He was transferred to [facility] for further workup. Patient actually did not undergo surgery and was on extended antibiotics for at least 6 weeks. Etiology of his endocarditis was discovered. The patient's family does not recall any mention of MRSA. He presents today due to right arm weakness and numbness and difficulty moving as well as ataxia. Patient states that he felt his legs were weak when it was more of an inability to find his gait. The symptoms have resolved since his evaluation at the emergency department. He denies any blurred vision, slurred speech, facial droop, chest pain, palpitations. He did note some headache which was right-sided that has resolved along with his arm weakness. Patient's food service supervisor is Dr. Robles. Of note, the patient does have a severely reduced ejection fraction of 30% and is currently under evaluation for an AICD placement due to multiple runs of nonsustained ventricular tachycardia. He is scheduled for AICD placement on 10/30/2016. In the emergency department his vital signs were notable for hypertension with a blood pressure 167/90. A CT brain was performed which ruled out intracranial bleed. Hospital Course # Suspected acute transient ischemic attack, present on admission. Symptoms resolved -MR brain, CT angiogram of head and neck, echo. Unremarkable as noted above -Of note, the echo report noted above was compared to the one from 2013 instead of last echo from 2016. I discussed and reviewed the results with cardiology ( Dr. Peng) who notes no evidence of apical thrumbus and that EF is same or improved compared to 2016 # Heart failure with reduced EF, with arrhythmia, present on admission. Stable. -Continued home meds # Bicuspid aortic valve status post mechanical aortic valve replacement, present on admission -Patient's INR is therapeutic. -Continue warfarin # Hyperlipidemia -Continued statin # Hypertension - Continue home meds by day of d/c patient denies any further neuro symptoms. ambulating and eager to go home. Exam Vital Signs (Last) Date Time Temp Pulse Resp B/P Pulse Ox O2 Delivery O2 Flow Rate FiO2 10/01/16 15:16 36.6 69 18 147/82 97 Room Air Exam CN II-XII grossly intact Lungs: CTA bilat CV: RRR Test 09/30/16 10:40 09/30/16 14:56 09/30/16 18:45 10/01/16 05:00 Neutrophils (%) (Auto) 63.5% (40-74) Lymphocytes (%) (Auto) 25.8% (14-46) Monocytes (%) (Auto) 6.9% (4-12) Eosinophils (%) (Auto) 3.0% (0-5) Basophils (%) (Auto) 0.5% (0-3) Activated Partial Thromboplast Time 36.2sec (22.8-33.0) Total Bilirubin 0.7mg/dL (0.0-1.2) Aspartate Amino Transf (AST/SGOT) 24U/L (0-50) Alanine Aminotransferase (ALT/SGPT) 22U/L (0-44) Alkaline Phosphatase 132U/L (25-160) Troponin T < 0.010ug/L (0.0-0.011) Total Protein 7.8g/dL (6.4-8.4) Albumin 4.3g/dL (3.4-5.0) Hold Carvajal Top Tube Received (Received) Hemoglobin A1c 5.7% (4.8-5.6) Urine Color Yellow (YELLOW) Urine Appearance Clear (CLEAR,HAZY) Urine pH 5.0 (5.0-8.0) Urine Specific [place] 1.010 (1.003-1.035) Urine Protein Negativemg/dL (NEG,TRACE) Urine Glucose (UA) Negativemg/dL (NEGATIVE) Urine Ketones Negativemg/dL (NEGATIVE) Urine Occult Blood Negative (NEGATIVE) Urine Nitrite Negative (NEGATIVE) Urine Bilirubin Negative (NEGATIVE) Urine Urobilinogen Normalmg/dL (NORMAL) Urine Leukocyte Esterase Negative (NEGATIVE) Urine RBC 0-2/hpf (0-2) Urine WBC 0-5/hpf (0-5) Urine Epithelial Cells None/hpf (NONE-MOD) Urine Crystals None seen (NONE SEEN) Urine Bacteria None/hpf (NONE-FEW) Urine Hyaline Casts None/lpf (NONE) Urine Granular Casts None seen (NONE SEEN) Urine Waxy Casts None seen (NONE SEEN) Urine Red Blood Cell Casts None seen (NONE SEEN) Urine White Blood Cell Casts None seen (NONE SEEN) Urine Mucus None seen (None Seen) Urine Trichomonas None seen (NONE SEEN) Urine Yeast None (NONE SEEN) Urinalysis Comment None Urine Culture Reflexed Not indicated White Blood Count 6.0th/mm3 (3.8-10.1) Red Blood Count 4.18mil/mm3 (4.40-5.80) Hemoglobin 13.4g/dL (13.8-17.2) Hematocrit 39.4% (41.0-50.0) Mean Corpuscular Volume 94.3fL (81-100) Mean Corpuscular Hemoglobin 32.1pg (27.0-35.0) Mean Corpuscular Hemoglobin Concent 34.0% (32.0-37.0) Red Cell Distribution Width 12.8% (12.3-15.4) Platelet Count 184bil/L (150-400) Prothrombin Time 26.8sec (8.1-12.5) Prothromb Time International Ratio 2.46ratio Sodium Level 139mEq/L (134-144) Potassium Level 4.6mEq/L (3.5-5.2) Chloride Level 104mEq/L (97-108) Carbon Dioxide Level 22mmol/L (18-29) Blood Urea Nitrogen 17mg/dL (8-27) Creatinine 1.09mg/dL (0.76-1.27) Estimat Glomerular Filtration Rate 71mL/min (>59) Glucose Level 101mg/dL (60-99) Calcium Level 8.7mg/dL (8.5-10.1) Magnesium Level 2.2mg/dL (1.6-2.6) Triglycerides Level 159mg/dL (0-149) Cholesterol Level 131mg/dL (100-199) LDL Cholesterol, Calculated 63.200mg/dL (0-99) VLDL Cholesterol 31.800mg/dL HDL Cholesterol 36mg/dL (>39) Cholesterol/HDL Ratio 3.64 (0.0-4.4) Discharge Medications Discharge Medications Aspirin (Aspirin) 81 Mg Tablet 81 MG PO DAILY (Reported) Atorvastatin Calcium (Atorvastatin Calcium) 20 Mg Tablet 20 MG PO HS (Reported) Carvedilol (Carvedilol) 6.25 Mg Tablet 6.25 MG PO BID (Reported) Felodipine ER (Felodipine ER) 10 Mg Tab.er.24h 10 MG PO DAILY (Reported) Furosemide (Furosemide) 20 Mg Tab 20 MG PO DAILY (Reported) Losartan Potassium (Losartan Potassium) 50 Mg Tablet 75 MG PO BID (Reported) Spironolactone (Spironolactone) 25 Mg Tablet 12.5 MG PO DAILY (Reported) Warfarin Sodium (Jantoven) 5 Mg Tablet 2.5 MG PO T,W,TH,S,S (Reported) Warfarin Sodium (Jantoven) 5 Mg Tablet 5 MG PO M, F (Reported) Additional med instructions Resume home medications as before Followup Plan Disposition: Home Follow-up plan 1. Followup with primary care provider in 3-7 days Discharge Diet: Low fat, Low Sodium, Heart Healthy Discharge Activity: No restrictions Patient Instructions Seek immediate medical attention if any new or worsening signs or symptoms occur. Follow-up Provider: Aly Cohen MD Time spent 40 min copies to: Aly Cohen MD, Masoud Oct 01, 2016 16:40
--- NOTE | 2016-10-01 16:41 | NUR ---
Discharge Pt discharged at this time. All belongings gathered and returned to pt, No new scripts given. IV D/Cd intact, tele monitor removed. VSS, noc omplains of increased pain, or neuro deficits noted. Discharge packet printed and reviewed with pt and spouse. Pt declined offer of wheelchair, stable steady gait observed. Pt escorted off [facility] to elevators by this RN, to be driven home by in private vehicle.
== END 2016-10-01 16:49 | disposition home or self-care (01) ==
LOC: SED 10:13 → MPC 13:27
PROVIDERS: ADMIT Internal Medicine; ATTEND Internal Medicine
DX: G45.9 Transient cerebral ischemic attack, unspecified (principal); R53.1 Weakness; R20.0 Anesthesia of skin; R27.0 Ataxia, unspecified; I11.0 Hypertensive heart disease with heart failure; I50.22 Chronic systolic (congestive) heart failure; E78.5 Hyperlipidemia, unspecified; I25.10 Atherosclerotic heart disease of native coronary artery without angina pectoris; I25.2 Old myocardial infarction; I44.0 Atrioventricular block, first degree; I45.2 Bifascicular block; I27.2 Other secondary pulmonary hypertension; G47.30 Sleep apnea, unspecified; I71.4 Abdominal aortic aneurysm, without rupture; I38 Endocarditis, valve unspecified; Z95.5 Presence of coronary angioplasty implant and graft; Z95.2 Presence of prosthetic heart valve; Z79.01 Long term (current) use of anticoagulants; Z79.82 Long term (current) use of aspirin
CPT/HCPCS: 36415; 70450; 70496; 70498; 70551; 80048; 80053; 80061; 81000; 83036; 83735; 84484; 85025; 85027; 85610; 85730; 92610; 93005; 97161; 99291; C8924; G0378; G8978; G8979; G8980; G8996; G8997; Q9957; Q9967

== ENCOUNTER 2016-10-30 00:31 | Day surgery (SDC) | payer MEDICARE, OTHER ==
[~2016-10-30] VITALS: Ht 177.8 cm; Wt 86.3 kg
[2016-10-30] VITALS (13 sets, daily range): BP systolic 95–137; BP diastolic 53–74; PULSE 64–71; RESP 15–18; O2SAT 98–99
[~2016-10-30 00:31] MED LIST: ASPI-973 PO; ATOR20TA65 PO; CARV6.252 PO; FELO10TA3 PO; FUR20 PO; LOSA50TA37 PO; SPIR25TA3 PO; WARF5TAB9 PO
[2016-10-30 09:43] LABS: BASOPHILS % (AUTO) 0.7 % (0-3); EOSINOPHILS % (AUTO) 2.9 % (0-5); MONOCYTES % (AUTO) 8.4 % (4-12); Mean Corpuscular Hemoglobin 31.9 pg (27.0-35.0); Mean Corpuscular Volume 94.5 fL (81-100); NEUTROPHILS % (AUTO) 58.4 % (40-74); Platelet Count 188 bil/L (150-400)
[2016-10-30 09:43] LABS: INR 3.04 ratio
[2016-10-30] MEDS ORDERED: CeFAZolin 2 Gm/50 mL D5W IV Premix IV SCH (10:06)
[2016-10-30] MEDS ORDERED: Vancomycin 1,000 mg Inj ONE (10:13)
[2016-10-30] MEDS ORDERED: Water for Injection 50 ML IV ONE (10:13)
[2016-10-30] MEDS ORDERED: Heparin 10,000 Unit/1,000 mL NS Premix IV ONE (10:13)
[2016-10-30] MEDS ORDERED: 0.9% Sodium Chloride 250 ML ONE (10:13)
[2016-10-30] MEDS ORDERED: Bupivacaine-MPF 0.5% 30 mL Inj ONE (10:13)
[2016-10-30] MEDS ORDERED: Vancomycin 1,000mg/200 mL NS IV ONE (10:16)
[2016-10-30] MEDS ORDERED: fentaNYL-PF 50 mCg/mL 2 mL Inj ONE ×2 (10:42→11:44)
[2016-10-30] MEDS ORDERED: HYDROcodone-APAP 5-325 mg Tablet PO PRN (13:00)
[2016-10-30] MEDS ORDERED: Ondansetron 2 mg/mL 2 mL Inj IVPUSH PRN (13:00)
--- NOTE | 2016-10-30 14:38 | OP ---
[address] [address] OPERATIVE REPORT PATIENT: JOBY CASAS : 1945 MR#: [id number] ADMIT: 10/30/2016 JOB ID: [id number] DATE OF SURGERY: 10/30/2016 PREOPERATIVE DIAGNOSIS(ES): 1. 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 2. Mechanical aortic valve replacement. 3. Bifascicular block. 4. [place] [employer] class 3 heart failure symptoms. POSTOPERATIVE DIAGNOSIS(ES): 1. 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 2. Mechanical aortic valve replacement. 3. Bifascicular block. 4. [place] [employer] class 3 heart failure symptoms. PROCEDURES PERFORMED: 1. Implantation of a biventricular ICD system with a multitude lead ICD generator, RV ICD lead, coronary sinus left ventricular lead and right atrial pacemaker lead. 2. Coronary sinus venogram. 3. Left upper extremity venogram. 4. Fluoroscopy. SURGEON: Dougie Robles M.D., electrophysiology attending. METAL BOX MAKER: Malathi Goetz. IMPLANTED DEVICE: 1. [employer] pulse generator, model [id number] cm, serial #[id number]. 2. RV lead [employer] 2088 TC, 52 cm, serial #[id number]. 3. RV lead [employer] 7122Q, 58 cm, serial #[id number]. 4. LV lead, [employer] 1458Q, 86 cm, serial # [id number]. ANESTHESIA: Bolus dosing of Versed and fentanyl utilized to an appropriate level of sedation. INDICATION: The patient is a pleasant 70-year-old man with a longstanding history of mechanical aortic valve replacement, severe valvular cardiomyopathy, embolic myocardial infarction, congestive heart failure symptomology and bifascicular block. After discussion of the risks and benefits of a biventricular ICD implantation, he opted to proceed. PROCEDURAL DESCRIPTION: The patient was taken to the EP laboratory in the fasting nonsedated state where he was prepped and draped in the usual sterile fashion. The left infraclavicular region was infiltrated with 40 cc of a 50/50 mixture of bupivacaine and lidocaine. Once adequate anesthesia had been achieved, a 3 cm transverse incision was performed 2 cm below the clavicle and dissected down to the pectoralis fascia and a pocket was then fashioned using combination of electrocautery and blunt dissection. Once adequate anesthesia had been achieved and under venographic guidance, the left axillary vein was cannulated over the first rib three times to deploy three 0.035, 3 mm J guidewires. Over the first of these, a 7-Indian tear-away sheath was advanced. Once the wire was removed, an active fixation was advanced to the RV outflow tract and ultimately to the RV apex. The lead was affixed in position using associated active fixation screw. It was connected to the external analyzer demonstrated appropriately sensed R waves, impedance, capture. It was checked to 10 V and there was no evidence of diaphragmatic stimulation. Attention was now paid to the coronary sinus lead over another of the previously deployed J guidewires. A 9-Indian tear-away sheath was advanced. Once the guidewire was removed, a [employer] CS delivery sheath was delivered over a Super CS decapolar EP catheter which was then used to engage the coronary sinus. The sheath was advanced into the sinus. The EP catheter was pulled back, and a coronary sinus venogram revealed a modestly sized posterolateral branch at the 2 o'clock position off the mitral annulus. This was chosen as our branch of choice. The sheath was cleared and a quadripolar CS lead was delivered over a Whisper wire into the branch of choice. The lead was connected to the external analyzer and demonstrated appropriately sensed R waves, impedance, capture. It was checked 10 V and there was no evidence of diaphragmatic stimulation. A short 9-Indian sheath was slit loose maintaining the position of the CS lead with the long sheath. We then addressed the right atrial lead. Over the last of the previously deployed J guidewires, a 6-Indian tear-away sheath was advanced. Once that was removed, an active fixation lead was advanced to right atrial appendage. It was affixed in position using its associated active fixation device to the external analyzer and demonstrated appropriately sensed P waves, impedance and capture. It was checked to 10 V and there was no evidence of diaphragmatic attenuation. Finally the long sheath was slit loose maintaining the position of the coronary sinus lead. Once the redundancy and position of all three leads had been confirmed with multiple fluoroscopic views, the leads were anchored to the prepectoralis fascia using their associated anchoring sleeves and two Ethibond sutures. The pocket was then copiously irrigated with antibiotic solution. The leads were connected to a generator. The generator was placed into the pocket using 1-0 Ti-Cron suture. The incision was then closed with running layers of absorbable suture. The wound was then dressed with skin adhesive and a small dressing. At the end of procedure, the needle, sponge, and instrument counts were all correct. COMPLICATIONS: None. ESTIMATED BLOOD LOSS: 20 cc. DEVICE MEASURED DATA: 1. Right atrial lead 1.8 mV, 0.75 V at 0.5 msec, 440 ohms. 2. RV lead greater than 12 mV, 0.5 V at 0.5 msec, 560 ohms. 3. LV lead, 0.75 V at 0.5 msec (D1 to RV coil), 690 ohms. FINAL PARAMETER: 1. DDDR 60-130 beats per minute. 2. VF zone at 187 beats per minute with ATP followed by shocks. 3. VT 2 zone at 171 beats per minute with three rounds of ATP followed by shocks. 4. VT monitor zone at 150 beats per minute. IMPRESSION: Successful biventricular ICD implantation. PLAN: 1. Stat portable chest x-ray. 2. PA and lateral chest x-ray in the morning. 3. IV vancomycin through tomorrow. 4. Doxycycline x7 days. 5. Wound check in one week. ATTENDING STATEMENT: Dougie Robles M.D., electrophysiology attending was present for and supervised/performed all aspects of this procedure.
--- NOTE | 2016-10-30 15:13 | DRSVH ---
PROCEDURE: X-RAY CHEST ONE VIEW, PORTABLE ([id number]) INDICATIONS: For new leads placed TECHNIQUE: One view of the chest was acquired. COMPARISON: None. FINDINGS: Surgical changes and devices: Sternotomy with mediastinal postoperative changes from a valve prosthes is, and left-sided cardiac pacer with 3 pacer leads. Lungs and pleura: No pleural effusions or pneumothorax. Lungs are clear. Mediastinum: Enlarged cardiac mediastinal silhouette. Bones and chest wall: No suspicious bony lesions. Overlying soft tissues appear unremarkable. IMPRESSION: Sternotomy with mediastinal postoperative changes, cardiac valve prosthesis, left-sided p acer with 3 cardiac leads, and enlargement of the cardiomediastinal silhouette. Dictated by: Esau Holm M.D. on 10/30/2016 at 15:10 Approved by: Esau Holm M.D. on 10/30/2016 at 15:11
[2016-10-30] MEDS: 0.9% Sodium Chloride 1,000 ML IV SCH ×4 (15:46→22:56)
--- NOTE | 2016-10-30 16:07 | NUR ---
ADMIT FROM [facility] Pt arrived to [id number] at 1515 following report from Nora Waldrop RN. Pt had an ICD placement this AM, bedrest restrictions at 1430. Pt up to BR with SBA, denies any dizziness with change of position and tolerated activity well. Drsg to SKYE chest is CDI. Pt on RA. Denies any pain/discomfort. Introduced to staff, bed/call light controls. Pt placed on TELE: AV paced at 72 per cat scan tech. Pt on a HH diet, tolerating PO without issue. Family at bedside. Bed in lowest, locked position and call light in reach.
--- NOTE | 2016-10-30 17:19 | PCM.CONPHA ---
Subjective Date of Service: Oct 30, 2016 Objective Vital Signs Date Time Temp Pulse Resp B/P Pulse Ox O2 Delivery O2 Flow Rate FiO2 10/30/16 16:07 67 10/30/16 15:49 36.6 66 16 136/73 99 Room Air 10/30/16 15:00 65 18 95/53 98 Room Air 10/30/16 14:30 67 18 115/66 98 Room Air 10/30/16 14:15 65 18 115/66 98 Room Air 10/30/16 14:00 65 18 115/73 98 Room Air 10/30/16 13:45 68 18 126/73 98 Room Air 10/30/16 13:30 64 15 129/72 98 Room Air 10/30/16 13:25 125/56 10/30/16 13:23 127/74 10/30/16 09:42 36.8 64 121/69 98 Room Air Weight (Kilograms): 86.300 Height (Feet): 5 Height (Inches): 10.00 Test 10/30/16 09:21 10/30/16 09:39 Prothrombin Time 33.3sec (8.1-12.5) Prothromb Time International Ratio 3.04ratio White Blood Count 5.8th/mm3 (3.8-10.1) Red Blood Count 4.51mil/mm3 (4.40-5.80) Hemoglobin 14.4g/dL (13.8-17.2) Hematocrit 42.6% (41.0-50.0) Mean Corpuscular Volume 94.5fL (81-100) Mean Corpuscular Hemoglobin 31.9pg (27.0-35.0) Mean Corpuscular Hemoglobin Concent 33.8% (32.0-37.0) Red Cell Distribution Width 12.9% (12.3-15.4) Platelet Count 188bil/L (150-400) Neutrophils (%) (Auto) 58.4% (40-74) Lymphocytes (%) (Auto) 29.3% (14-46) Monocytes (%) (Auto) 8.4% (4-12) Eosinophils (%) (Auto) 2.9% (0-5) Basophils (%) (Auto) 0.7% (0-3) Sodium Level 140mEq/L (134-144) Potassium Level 4.8mEq/L (3.5-5.2) Chloride Level 106mEq/L (97-108) Carbon Dioxide Level 23mmol/L (18-29) Blood Urea Nitrogen 26mg/dL (8-27) Creatinine 0.99mg/dL (0.76-1.27) Estimat Glomerular Filtration Rate 79mL/min (>59) Glucose Level 103mg/dL (60-99) Calcium Level 9.3mg/dL (8.5-10.1) Assessment/Plan Assessment/Plan Warfarin management per pharmacy Indication: mechanical aortic valve INR goal: 2.0-3.0 (however, patient states that his goal is 2.5-3.5). Pertinent info: - INR goal for a mechanical aortic valve is 2.0-3.0. Will aim for higher end of this range due to patient's other risk factors (increased age, reduced ejection fraction) and report that his outpatient goal differs from standard recommendations. - INR today: 3.06 Will resume home warfarin dose today. Give warfarin 2.5 mg PO once this evening. Pharmacy to continue to monitor and dose warfarin daily. Thank you, Mack Bansal Pharmacist Mack Bansal Oct 30, 2016 17:19
[2016-10-30] MEDS ORDERED: Felodipine 5 mg ER24 Tablet PO SCH (21:00)
--- NOTE | 2016-10-30 22:24 | NUR ---
Nursing, PM [id number] Patient s/p ICD placement. Left chest dressing is CDI, no hematoma, pain or bruising to site. Patient instructed on LUE adduction precautions, and understands them. Tele Vpaced 71/min. Report to ALLIE Perez.
[2016-10-31 00:42] VITALS: BP 117/70; PULSE 60; RESP 16; O2SAT 95
[2016-10-31] MEDS ORDERED: Vancomycin Inj 1,000 MG in IV Premix 1 EACH IV ONE (01:00)
--- NOTE | 2016-10-31 01:46 | NUR ---
Transfer of care This RN resumed care of pt at 2300. Pt A&O, denies pain. Pacer site in L upper chest C&D-no direct observation. Pt tolerating IV abx well. Ind in room. Bed in low position, upper rails up, call light in reach. Will continue to monitor.
[2016-10-31] MEDS: 0.9% Sodium Chloride 1,000 ML IV SCH ×2 (02:15→08:56)
[2016-10-31 05:39] VITALS: BP 134/86; PULSE 72; RESP 18; O2SAT 96
[2016-10-31 05:58] LABS: INR 3.42 ratio
[2016-10-31 07:34] VITALS: BP 117/70; PULSE 64; RESP 14; O2SAT 95
--- NOTE | 2016-10-31 09:00 | DRSVH ---
PROCEDURE: X-RAY CHEST, TWO VIEWS ([id number]) INDICATIONS: For new lead placement TECHNIQUE: 2 views of the chest were acquired. COMPARISON: None. FINDINGS: Surgical changes and devices: Sternotomy with mediastinal postoperative changes cause a cardiac pacer , and cardiac valve prostheses.. Lungs and pleura: No pleural effusions or pneumothorax. Lungs are clear. Mediastinum: Mediastinal contours are normal. Heart size is enlarged. Bones and chest wall: No suspicious bony abnormalities. Soft tissues appear unremarkable. IMPRESSION: No significant interval change. Stable enlarged cardiomediastinal silhouette and postoperative change . Dictated by: Esau Holm M.D. on 10/31/2016 at 8:58 Approved by: Esau Holm M.D. on 10/31/2016 at 8:59
--- NOTE | 2016-10-31 09:28 | PCM.DIMED ---
Discharge Instructions Date of Service Oct 31, 2016 Dates of Hospitalization Discharge Diagnosis Discharge Diagnosis Nonischemic Cardiomyopathy Bifascicular block: RBBB + LAFB Hypertension Sleep apnea Mechanical Aortic Valve Diet Discharge Diet: Low fat, Low Sodium, Heart Healthy Activity Discharge Activity: Other (Keep incision dry one day. Do not extend left elbow high above shoulder for one month. Do not lift, push or pull more than 10 lbs with the left arm for one month.) Call your provider Call your provider for: Fever or Chills, Bleeding, Excessive diarrhea Patient Instructions Follow-up in: 1 week Mid-level Provider (F9): Scot Castillo PA-C Follow-up with Mid-level in: 6 weeks Scot Castillo PA-C Oct 31, 2016 09:28
[2016-10-31] MEDS ORDERED: CEPH500C PO (09:55)
--- NOTE | 2016-10-31 10:31 | DIS ---
[address] [address] DISCHARGE SUMMARY PATIENT: JOBY CASAS : 1945 MR#: [id number] ADMIT: 10/30/2016 JOB ID: [id number] DIS: 10/31/2016 DATE OF SERVICE: 10/31/2016 REASON FOR ADMISSION: Biventricular defibrillator implant. CHIEF COMPLAINT: Dyspnea on exertion. BRIEF HISTORY: The patient is a very pleasant, 70-year-old man with a longstanding cardiac history, including a bicuspid aortic valve with mechanical valve replacement in 1977. He has had left ventricular systolic dysfunction with an ejection fraction of 30% to 35%. He also once contracted a mitral valve endocarditis which was treated with antibiotic therapy. 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 He denies lightheadedness or syncope and has been symptomatic with dyspnea with mild exertion. He finds that he fatigues quite easily. The patient says that about 20 years ago, he had a cardiac arrest. Recent monitoring showed multiple runs of rapid nonsustained ventricular tachycardia. He was advised of the usefulness of a biventricular ICD to re-synchronize the cardiac contractions and to prevent sudden cardiac . He was admitted for implant of the device. COURSE IN HOSPITAL: The patient was admitted to the [facility] and taken to the label fuser tender, where he received the biventricular ICD system without incident. He was taken back to the [facility] for recovery from sedation and then transferred up to the third floor [facility] for overnight observation and telemetry monitoring. He did well overnight and in the morning was ambulatory without difficulty. The ICD site was closed and dry, and there was no hematoma. Chest x-ray showed good lead positions and no pneumothorax. Device evaluation showed excellent capture and sensing thresholds for all three chambers. He had no complaints of chest discomfort or dyspnea and felt well for discharge home. DISPOSITION: The patient was discharged home in good condition with a followup appointment at the [facility] office in one week. He was asked not to extend his left elbow above his left shoulder for one month and to not lift push or pull more than 10 pounds with the left arm for one month. He will take medications as prescribed and follow his heart-healthy and heart-failure diets. MEDICATIONS ON DISCHARGE: 1. Cephalexin 500 mg b.i.d. 2. Aspirin 81 mg daily. 3. Atorvastatin 20 mg q.h.s. 4. Carvedilol 6.25 mg b.i.d. 5. Felodipine ER 10 mg daily. 6. Furosemide 20 mg daily. 7. Losartan 75 mg b.i.d. 8. Spironolactone 12.5 mg daily. 9. Warfarin 5 mg alternating with 2.5 mg as directed by his anticoagulation clinic. FINAL DIAGNOSES: 1. 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 2. Hypertension. 3. Sleep apnea. 4. Mechanical aortic valve. 5. History of cardiac arrest 20 years ago by patient's report and mitral valve and/or endocarditis in remote history.
[2016-10-31 10:49] VITALS: PULSE 63
--- NOTE | 2016-10-31 12:47 | NUR ---
Discharge Pt. was discharged to home and came and picked him up. Pt. took all his belongings from room [address] [facility] and educational material was given to Pt. Pt. was told that the cardiology clinic would call him for a follow up appointment. IV DC'D x2 intact and asymptomatic. Pt. had no further questions, declined wheel chair and preferred to walk out. Pt. has a strong steady gait.
== END 2016-10-31 11:31 | disposition home or self-care (01) ==
LOC: SOUO 00:31 → MPC 15:37 → SOUO 10-31 11:31
PROVIDERS: ATTEND Internal Medicine Cardiovascular Disease
DX: I42.8 Other cardiomyopathies (principal); Z00.6 Encounter for examination for normal comparison and control in clinical research program; I25.5 Ischemic cardiomyopathy; I45.2 Bifascicular block; I44.0 Atrioventricular block, first degree; Z95.2 Presence of prosthetic heart valve; I11.9 Hypertensive heart disease without heart failure; E78.5 Hyperlipidemia, unspecified; G47.30 Sleep apnea, unspecified; I25.2 Old myocardial infarction; Z86.74 Personal history of sudden cardiac arrest; Z86.79 Personal history of other diseases of the circulatory system; Z79.82 Long term (current) use of aspirin; Z79.01 Long term (current) use of anticoagulants
CPT/HCPCS: 33225; 33249; 36415; 71010; 71020; 80048; 85025; 85610; 93005; 99152; 99153; C1769; C1777; C1882; C1892; C1898; C1900; J0131; J1644; J2250; J3010; J3370; J7030; J7050; Q9967